=== PATIENT | female | born 1990 | race Caucasian/White ===

== ENCOUNTER 2020-12-02 06:44 | Emergency (ER) | payer MEDICAID ==
[~2020-12-02] VITALS: Ht 172.7 cm; Wt 63.5 kg
[2020-12-02 07:31] LABS: Urine Amorphous Crystal MANY /hpf (None Seen); Urine Bacteria NONE SEEN /hpf (None Seen); Urine Blood Negative /uL (Negative); Urine Specific Gravity 1.018 (1.001-1.035); Urine WBC 17 /hpf (0 - 5); Urine WBC Clumps PRESENT /hpf (None Seen)
[2020-12-02 07:42] LABS: Basophils # (auto) 0 10 ^3/uL (0-0.2); Basophils % (auto) 0.2 % (0.0-2.0); Eosinophils # (auto) 0 10 ^3/uL (0-0.8); Hemoglobin 14.8 g/dL (12.2-16.2); Lymphocytes # (auto) 0.9 10 ^3/uL (0.4-5.4); Lymphocytes % (auto) 7.6 % (10.0-50.0); Mean Corpuscular Hemoglobin 31.3 pg (28.0-32.0); Mean Corpuscular Hgb Conc. 33.6 g/dL (32.0-36.0); Monocytes # (auto) 0.3 10 ^3/uL (0-1.3); Monocytes % (auto) 2.7 % (0.0-12.0); Neutrophils # (auto) 10.3 10 ^3/uL (1.6-8.6); Neutrophils % (auto) 89.5 % (37.0-80.0); Platelet Count (auto) 197 10^3/uL (140-450); Red Blood Cells 4.73 10^6/uL (4.0-5.20); Red Cell Distribution Width 12.8 % (11.8-14.3); White Blood Cell 11.5 10^3/uL (4.4-10.8)
[2020-12-02] MEDS ORDERED: MORPHINE SULFATE 4 MG/ML SYR/VIAL IV ONE (07:45)
[2020-12-02] MEDS ORDERED: ONDANSETRON HCL 4 MG/2 ML VIAL IV ONE (07:45)
[2020-12-02 07:58] LABS: Albumin 4.1 g/dL (3.4-5.0); Calcium 8.8 mg/dL (8.5-10.1); Potassium 4.2 mmol/L (3.5-5.1)
[2020-12-02 07:59] LABS: BUN/Creatinine Ratio 23.3
[2020-12-02 08:00] VITALS: BP 116/83
[2020-12-02] MEDS ORDERED: SODIUM CHLORIDE 0.9% 1,000 ML IV ONE (08:00)
[2020-12-02] MEDS ORDERED: PROCHLORPERAZINE EDISYLATE 5 MG/ML 2ML VIAL IV ONE (08:00)
[2020-12-02 08:02] LABS: Bilirubin, Total 0.5 mg/dL (0.2-1.0); Total Protein 7.5 g/dL (6.4-8.2)
[2020-12-02 08:11] LABS: Alcohol, Urine < 3.0 mg/dL (0-10); Amphetamine Screen, Urine NEGATIVE (NEGATIVE); Barbiturate Scree,Urine NEGATIVE (NEGATIVE); Cannabinoid Screen, Urine POSITIVE (NEGATIVE); Cocaine Screen, Urine NEGATIVE (NEGATIVE); Opiate Scree,Urine NEGATIVE (NEGATIVE); Phencyclidine Screen, Urine NEGATIVE (NEGATIVE)
[2020-12-02 08:19] LABS: Benzodiazephine Screen, Urine NEGATIVE (NEGATIVE)
== END 2020-12-02 09:36 | disposition home or self-care (01) ==
LOC: ER 06:44
DX: N39.0 Urinary tract infection, site not specified (principal); F12.19 Cannabis abuse with unspecified cannabis-induced disorder
CPT/HCPCS: 36415; 80053; 80307; 81001; 83690; 85025; 96361; 96374; 96375; 99284; J0780; J2270; J2405

== ENCOUNTER 2021-10-18 12:17 | Emergency (ER) | payer MEDICAID ==
[~2021-10-18] VITALS: Ht 172.7 cm; Wt 69.9 kg
[2021-10-18 15:59] VITALS: BP 130/86
== END 2021-10-18 16:04 | disposition home or self-care (01) ==
LOC: ER 12:17
DX: S63.502A Unspecified sprain of left wrist, initial encounter (principal); W22.8XXA Striking against or struck by other objects, initial encounter; Y93.89 Activity, other specified; Y92.89 Other specified places as the place of occurrence of the external cause; Y99.8 Other external cause status
CPT/HCPCS: 29125; 73110

== ENCOUNTER 2023-09-07 09:14 | Emergency (ER) | payer MEDICAID ==
[~2023-09-07] VITALS: Ht 172.7 cm; Wt 72.0 kg
[2023-09-07 09:20] VITALS: BP 133/85; PULSE 114; RESP 16; TEMP 98.3; O2SAT 98
[2023-09-07] MEDS: KETOROLAC TROMETH 60MG/2ML VIAL IM ONE (10:43)
[2023-09-07] MEDS: cefTRIAXone SOD 1,000 MG VL IM ONE (10:43)
[2023-09-07] MEDS ORDERED: IBUP-1455 PO (10:50)
[2023-09-07] MEDS ORDERED: BACDST PO (10:50)
== END 2023-09-07 10:51 | disposition home or self-care (01) ==
LOC: ER 09:14
DX: L05.91 Pilonidal cyst without abscess (principal)
CPT/HCPCS: 96372; 99284; J0696; J1885

== ENCOUNTER 2024-02-08 09:57 | Emergency (ER) | payer MEDICAID ==
[~2024-02-08] VITALS: Ht 172.7 cm; Wt 69.0 kg
[~2024-02-08 09:57] MED LIST: BACDST PO; IBUP-1455 PO
[2024-02-08 10:20] VITALS: BP 128/94; PULSE 89; RESP 17; TEMP 98.6; O2SAT 98
== END 2024-02-08 10:42 | disposition left against medical advice (07) ==
LOC: ER 09:57
DX: M79.642 Pain in left hand (principal); W22.8XXA Striking against or struck by other objects, initial encounter; Y93.89 Activity, other specified; Y92.89 Other specified places as the place of occurrence of the external cause; Y99.8 Other external cause status

== ENCOUNTER 2025-02-17 09:21 | Emergency (ER) | payer MEDICAID, OTHER, SELFPAY ==
[~2025-02-17] VITALS: Ht 172.7 cm; Wt 72.2 kg
[2025-02-17 10:35] LABS: Hematocrit 42.9 % (36.0-46.0); Hemoglobin 14.3 g/dL (12.2-16.2); Mean Corpuscular Hemoglobin 31.5 pg (28.0-32.0); Mean Corpuscular Volume 94.1 fL (80.0-100.0); Nucleated Red Blood Cells % 0.0 %
[2025-02-17 10:43] LABS: Potassium 4.1 mmol/L (3.5-5.1); Sodium 139 mmol/L (136-145)
[2025-02-17 10:44] LABS: Anion Gap 7 (5-15); Calcium 9.6 mg/dL (8.7-10.4); Carbon Dioxide 25 mmol/L (20-31)
[2025-02-17 10:49] LABS: BUN/Creatinine Ratio 14.9 (10.0-20.0); Blood Urea Nitrogen 11 mg/dL (9-23); Chloride 107 mmol/L (98-107); Glucose 102 mg/dL (74-106)
[2025-02-17] MEDS: cefTRIAXone SOD 1,000 MG VL IM ONE (11:55)
[2025-02-17 11:57] VITALS: BP 115/58; PULSE 74; RESP 18; TEMP 98.6; O2SAT 98
[2025-02-17] MEDS: HYDROcodone-ACET 7.5/325MG TAB PO ONE (12:11)
[2025-02-17] MEDS ORDERED: BACDST PO (12:41)
--- NOTE | 2025-02-17 12:41 | ED.PDOC ---
Musculoskeletal HPI Comments 34-year-old female with no MHx presents for a wound of the right heel following foot injections for plantar fasciitis Patient developed a wound to the right heel that appeared yesterday initially discharging a fussy yellow brownish fluid color Patient concerned because she says the wound is open and tender to touch in his aggravated with ambulation She admits she has a history of plantar fasciitis and received injections at the end of September of 2024 Chief Complaint: Lower Extremity Time Seen by MD: 09:27 Primary Care Provider: RAI Reviewed Notes: Nurses Notes, Medications, Allergies Allergies: Coded Allergies: NO KNOWN ALLERGIES (Unverified , 12/02/20) Home Meds Active Scripts Sulfamethoxazole W/Trimethopri (Bactrim Ds Tablet) 1 Tab Tb, 1 TAB PO BID for 7 Days, #14 TAB 0 Refills Prov:FIGUEROA COLON AVIONICS SYSTEM ENGINEER 02/17/25 Ibuprofen Micronized (Ibuprofen) 800 Mg Tab, 800 MG PO TID PRN, #40 TAB Prov:LAWRENCE PENN METAL BUGGY OPERATOR 09/07/23 Sulfamethoxazole W/Trimethopri (Bactrim Ds Tablet) 1 Tab Tb, 1 TAB PO BID for 10 Days, #20 TAB Prov:LAWRENCE PENN METAL BUGGY OPERATOR 09/07/23 Information Source: Patient Mode of Arrival: Ambulatory Past Medical History PAST MEDICAL HISTORY: Denies Surgical History: Denies all surgeries CLOTH MERCERIZER BACK TENDER History: No Pertinent CLOTH MERCERIZER BACK TENDER History Social History Smoker: Non-Smoker Alcohol: Denies ETOH Use Drugs: Denies Drug Use, Marijuana Lives In: Home All Other Systems: Reviewed and Negative (Per HPI) Physical Exam General Appearance: No Apparent Distress, Normal HEENT: Normal ENT Inspection, Pharynx Normal, TMs Normal Neck: Full Range of Motion, Non-Tender, Normal, Normal Inspection Respiratory: Chest Non-Tender, Lungs Clear, No Accessory Muscle Use, No Respiratory Distress, Normal Breath Sounds Cardiovascular: No Murmur, No Gallop, Regular Rate/Rhythm Breast Exam: Deferred Gastrointestinal: No Organomegaly, Non Tender, No Pulsatile Mass, Normal Bowel Sounds, Soft Genitalia: Deferred Pelvic: Deferred Rectal: Deferred Extremities: No calf tenderness, Normal capillary refill, Normal inspection, Normal range of motion, Non-tender, No pedal edema Musculoskeletal : Location: Right Extremity Location: Foot (Skin is warm dry appropriate for ethnicity. Puncture wound noted to the bottom of the right heel with mild surrounding erythema. Minimal discharge noted that is clear in color) Apperance: Normal Neurologic: Alert, No Motor Deficits, Normal Affect, Normal Mood, No Sensory Deficits Cerebellar Function: Normal Reflexes: Normal Skin: Dry, Normal Color, Warm Lymphatic: No Adenopathy Was a procedure done? Was a procedure done?: No Differential Diagnosis EXT Differential Diagnosis: Cellulitis X-Ray, Labs, Meds, VS Vital Signs Date Time Temp Pulse Resp B/P (MAP) Pulse Ox O2 Delivery O2 Flow Rate FiO2 02/17/25 11:57 98.6 74 18 115/58 (77) 98 98.6 02/17/25 11:03 97.5 94 16 128/85 (99) 100 97.5 02/17/25 11:03 94 16 100 Room Air 02/17/25 09:22 97.5 94 16 128/85 100 97.5 Lab Test 02/17/25 10:05 Range/Units White Blood Count 7.7 4.4-10.8 10^3/uL Red Blood Count 4.55 4.0-5.20 10^6/uL Hemoglobin 14.3 12.2-16.2 g/dL Hematocrit 42.9 36.0-46.0 % Mean Corpuscular Volume 94.1 80.0-100.0 fL Mean Corpuscular Hemoglobin 31.5 28.0-32.0 pg Mean Corpuscular Hemoglobin Concent 33.5 32.0-36.0 g/dL Red Cell Distribution Width 12.8 11.8-14.3 % Platelet Count 218 140-450 10^3/uL Mean Platelet Volume 10.1 6.9-10.8 fL Neutrophils (%) (Auto) 75.7 37.0-80.0 % Lymphocytes (%) (Auto) 17.8 10.0-50.0 % Monocytes (%) (Auto) 4.6 0.0-12.0 % Eosinophils (%) (Auto) 1.3 0.0-7.0 % Basophils (%) (Auto) 0.6 0.0-2.0 % Neutrophils # (Auto) 5.8 1.6-8.6 10 ^3/uL Lymphocytes # (Auto) 1.4 0.4-5.4 10 ^3/uL Monocytes # (Auto) 0.4 0-1.3 10 ^3/uL Eosinophils # (Auto) 0.1 0-0.8 10 ^3/uL Basophils # (Auto) 0 0-0.2 10 ^3/uL Nucleated Red Blood Cells 0.0 % Erythrocyte Sedimentation Rate 3 0-20 mm/hr Sodium Level 139 136-145 mmol/L Potassium Level 4.1 3.5-5.1 mmol/L Chloride Level 107 98-107 mmol/L Carbon Dioxide Level 25 20-31 mmol/L Anion Gap 7 5-15 Blood Urea Nitrogen 11 9-23 mg/dL Creatinine 0.74 0.550-1.02 mg/dL Glomerular Filtration Rate Calc 107 >90 mL/min BUN/Creatinine Ratio 14.9 10.0-20.0 Serum Glucose 102 74-106 mg/dL Calcium Level 9.6 8.7-10.4 mg/dL C-Reactive Protein High Sensitivity 0.52 <1.0 mg/dL Current Medications Medications (Trade) Dose Ordered Sig/Greyson Route Start Time Stop Time Status Last Admin Ceftriaxone Sodium (Rocephin) 1,000 mg ONCE ONCE IM 02/17/25 11:45 02/17/25 11:47 DC 02/17/25 11:55 Acetaminophen/ Hydrocodone Bitart ([place] 7.5/325MG Tab) 1 tab ONCE ONCE PO 02/17/25 12:15 02/17/25 12:16 DC 02/17/25 12:11 X-Ray, Labs, Meds, VS Comment History and findings consistent with cellulitis. The area of infection does not appear to have any loculations/induration based on physical exam. The patient did not require an incision and drainage. Patient well appearing. VSS. Given History, Exam, and Workup I have low suspicion for Necrotizing Fasciitis, Abscess, Osteomyelitis, DVT or other emergent problem as a cause for this presentation. Low risk for treatment failure based on history. The patient will be treated with antibiotics. The patient was advised to return 24-48 hours for wound check. Sooner if symptoms worsen. Additional MDM Review of External, Non-ED records: External records reviewed. Discussion with independent historian (EMS, family) history obtained from the patient/parents (if applicable) at bedside Chronic conditions affecting care: None Social determinants of health affecting care: None Consideration of admission (observation or admission): I considered escalation of care to admission for this patient, however given the reassuring workup, the patient is safe for outpatient management. Discussion with the Radiology: No Tests considered but not performed: Prescription medication considered but not given: Time of 1ST Reevaluation: 12:30 Reevaluation 1ST: Improved Patient Education/Counseling: Diagnosis, Treatment Family Education/Counseling: Diagnosis, Treatment Departure 1 Departure Time of Disposition: 12:41 Impression: Primary Impression: Cellulitis Qualified Codes: L03.90 - Cellulitis, unspecified Disposition: HOME / SELF CARE / HOMELESS Condition: Stable e-Prescriptions Sulfamethoxazole W/Trimethopri (Bactrim Ds Tablet) 1 Tab Tb 1 TAB PO BID for 7 Days, #14 TAB 0 Refills Prov: FIGUEROA COLON NP 02/17/25 Critical Care Note Critical Care Time?: No Stability Stability form required: No Heart Score Heart Score: Heart Score Response (Comments) Value History N/A 0 EKG N/A 0 Age N/A 0 Risk Factors N/A 0 Troponin N/A 0 Total 0 FIGUEROA COLON NP Feb 17, 2025 12:41
== END 2025-02-17 12:50 | disposition home or self-care (01) ==
LOC: ER 09:21
DX: L03.90 Cellulitis, unspecified (principal); Z79.899 Other long term (current) drug therapy
CPT/HCPCS: 36415; 80048; 85025; 85652; 86141; 87040; 96372; 99283; J0696

== ENCOUNTER 2025-03-28 14:02 | Inpatient (IN) | payer SELFPAY ==
[~2025-03-28] VITALS: Ht 172.7 cm; Wt 74.6 kg
[2025-03-28 15:19] LABS: Hematocrit 42.9 % (36.0-46.0); Hemoglobin 14.4 g/dL (12.2-16.2); Mean Corpuscular Hemoglobin 30.8 pg (28.0-32.0); Mean Corpuscular Volume 91.5 fL (80.0-100.0); Nucleated Red Blood Cells % 0.1 %
--- NOTE | 2025-03-28 15:23 | ED.PDOC ---
General HPI Comments 34 y/o F, with no prior medical history presents to the ED for CC of flank pain. Patient states, she has been experiencing left-sided flank pain that radiates to her left pelvic region x2days. Patient reports, pain to be "sharp" in nature worsening with ambulation. Patient denies abdominal pain, urinary frequency, vaginal discharge, fever, or vomiting. No other symptoms or modifying factors are present at this time. Chief Complaint: Flank Pain Time Seen by MD: 15:00 Primary Care Provider: RAI Gutierrez notes: Nurses Notes, Medications, Allergies Allergies: Coded Allergies: NO KNOWN ALLERGIES (Unverified , 12/02/20) Home Meds Active Scripts Sulfamethoxazole W/Trimethopri (Bactrim Ds Tablet) 1 Tab Tb, 1 TAB PO BID for 7 Days, #14 TAB 0 Refills Prov:FIGUEROA COLON STEEL ENGRAVER 02/17/25 Ibuprofen Micronized (Ibuprofen) 800 Mg Tab, 800 MG PO TID PRN, #40 TAB Prov:LAWRENCE PENN SINKER WINDER 09/07/23 Sulfamethoxazole W/Trimethopri (Bactrim Ds Tablet) 1 Tab Tb, 1 TAB PO BID for 10 Days, #20 TAB Prov:LAWRENCE PENN SINKER WINDER 09/07/23 Information Source: Patient Mode of Arrival: Ambulatory Severity: Moderate Timing: Days Duration: Since onset Prehospital treatment: None Onset: Spontaneous Symptoms: None History of: None Location: (L)Flank Modifying factors: None associated signs and symptoms: Flank Pain Past Medical History PAST MEDICAL HISTORY: Denies Surgical History: Denies all surgeries AUDIO VIDEO TECHNICIAN History: No Pertinent AUDIO VIDEO TECHNICIAN History Social History Smoker: Non-Smoker Alcohol: Denies ETOH Use Drugs: Denies Drug Use, Marijuana Lives In: Home Physical Exam General Appearance: No Apparent Distress, Normal HEENT: Normal ENT Inspection, Pharynx Normal Neck: Full Range of Motion, Non-Tender, Normal, Normal Inspection Respiratory: Chest Non-Tender, Lungs Clear, No Accessory Muscle Use, No Respiratory Distress, Normal Breath Sounds Cardiovascular: No Edema, No Murmur, No Gallop, Normal Peripheral Pulses, Regu lar Rate/Rhythm Breast Exam: Deferred Gastrointestinal: No Organomegaly, Non Tender, No Pulsatile Mass, Normal Bowel Sounds, Soft Genitalia: Deferred Pelvic: Deferred Rectal: Deferred Extremities: No calf tenderness, Normal capillary refill, Normal inspection, Normal range of motion, Non-tender, No pedal edema Musculoskeletal : Location: Left Extremity Location: Back (flank) Apperance: Tenderness Neurologic: Alert, organ fixer II-XII nml as Tested, No Motor Deficits, Normal Affect, Normal Mood, No Sensory Deficits Cerebellar Function: Normal Reflexes: Normal Skin: Dry, Normal Color, Warm Lymphatic: No Adenopathy Was a procedure done? Was a procedure done?: No Differential Diagnosis Kidney stone (Female): Urinary obstruction, Urolithiasis Kidney stone (Male): N/A Penile/Scrotal: N/A Urinary Problem (Male): N/A Urinary Problem (Female): UTI, Vaginitis X-Ray, Labs, Meds, VS Vital Signs Date Time Temp Pulse Resp B/P (MAP) Pulse Ox O2 Delivery O2 Flow Rate FiO2 03/28/25 17:20 88 16 144/85 03/28/25 14:05 97.8 129 16 160/91 97 97.8 Lab Test 03/28/25 15:09 03/28/25 14:43 Range/Units White Blood Count 10.0 4.4-10.8 10^3/uL Red Blood Count 4.69 4.0-5.20 10^6/uL Hemoglobin 14.4 12.2-16.2 g/dL Hematocrit 42.9 36.0-46.0 % Mean Corpuscular Volume 91.5 80.0-100.0 fL Mean Corpuscular Hemoglobin 30.8 28.0-32.0 pg Mean Corpuscular Hemoglobin Concent 33.6 32.0-36.0 g/dL Red Cell Distribution Width 12.6 11.8-14.3 % Platelet Count 242 140-450 10^3/uL Mean Platelet Volume 9.6 6.9-10.8 fL Neutrophils (%) (Auto) 68.2 37.0-80.0 % Lymphocytes (%) (Auto) 22.2 10.0-50.0 % Monocytes (%) (Auto) 7.4 0.0-12.0 % Eosinophils (%) (Auto) 1.2 0.0-7.0 % Basophils (%) (Auto) 1.0 0.0-2.0 % Neutrophils # (Auto) 6.8 1.6-8.6 10 ^3/uL Lymphocytes # (Auto) 2.2 0.4-5.4 10 ^3/uL Monocytes # (Auto) 0.7 0-1.3 10 ^3/uL Eosinophils # (Auto) 0.1 0-0.8 10 ^3/uL Basophils # (Auto) 0.1 0-0.2 10 ^3/uL Nucleated Red Blood Cells 0.1 % Sodium Level 141 136-145 mmol/L Potassium Level 4.2 3.5-5.1 mmol/L Chloride Level 105 98-107 mmol/L Carbon Dioxide Level 28 20-31 mmol/L Anion Gap 8 5-15 Blood Urea Nitrogen 14 9-23 mg/dL Creatinine 0.91 0.550-1.02 mg/dL Glomerular Filtration Rate Calc 84 >90 mL/min BUN/Creatinine Ratio 15.4 10.0-20.0 Serum Glucose 123 H 74-106 mg/dL Calcium Level 9.7 8.7-10.4 mg/dL Urine Color Colorless Yellow Urine Clarity Turbid H Clear Urine pH 6.5 5.0-9.0 Urine Specific [place] 1.021 1.001-1.035 Urine Protein Trace H Negative Urine Ketones Negative Negative Urine Blood Negative Negative /uL Urine Nitrite Negative Negative Urine Bilirubin Negative Negative Urine Urobilinogen Normal Negative mg/dL Urine Leukocyte Esterase Negative Negative /uL Urine RBC 3 0 - 4 /hpf Urine WBC Clumps Present None Seen /hpf Urine Microscopic WBC 13 H 0-5 /HPF Urine Squamous Epithelial Cells Few <5 /hpf Urine Bacteria None seen None Seen /hpf Urine Yeast (Budding) Moderate None Seen /hpf Urine Glucose Normal Normal mg/dL Current Medications Medications (Trade) Dose Ordered Sig/Greyson Route Start Time Stop Time Status Last Admin Sodium Chloride 1,000 ml @ 1,000 mls/hr Q1H ONCE IV 03/28/25 16:30 03/28/25 17:29 DC 03/28/25 17:19 Morphine Sulfate 4 mg ONCE ONCE IV 03/28/25 16:30 03/28/25 16:48 DC 03/28/25 17:20 Ondansetron HCl (Zofran) 4 mg ONCE ONCE IV 03/28/25 16:30 03/28/25 16:48 DC 03/28/25 17:20 Ceftriaxone Sodium 50 ml @ 100 mls/hr ONCE ONCE IV 03/28/25 16:30 03/28/25 16:59 DC 03/28/25 17:21 Time of 1ST Reevaluation: 15:30 Reevaluation 1ST: Unchanged Patient Education/Counseling: Diagnosis, Treatment Family Education/Counseling: No Family Present SEPSIS Sepsis Screen Date sepsis recognized/suspect: Mar 28, 2025 Time Sepsis recognized/suspect: 1407 Recent Procedure: No On Antibiotic Therapy: No Respiratory Rate >20: No Heart Rate >90: No Temp<36 C (96.8 F) or >38.3 C: No SBP <90 or MAP <65 mmHG: No New Acute Mental Status Change: No Is the patient on CPAP, BIPAP,: No Physician Orders Ct Ab Pel Wo Con-No Oral Or Iv (03/28/25 16:20) Vital Signs Date Time Temp Pulse Resp B/P (MAP) Pulse Ox O2 Delivery O2 Flow Rate FiO2 03/28/25 17:20 88 16 144/85 03/28/25 14:05 97.8 129 16 160/91 97 97.8 Laboratory Tests Test 03/28/25 15:09 White Blood Count 10.0 10^3/uL (4.4-10.8) Medications Medications Dose Ordered Sig/Greyson Route Start Time Stop Time Status Last Admin Dose Admin Ceftriaxone Sodium 50 ml @ 100 mls/hr ONCE ONCE IV 03/28/25 16:30 03/28/25 16:59 DC 03/28/25 17:21 Morphine Sulfate 4 mg ONCE ONCE IV 03/28/25 16:30 03/28/25 16:48 DC 03/28/25 17:20 Ondansetron HCl 4 mg ONCE ONCE IV 03/28/25 16:30 03/28/25 16:48 DC 03/28/25 17:20 Sodium Chloride 1,000 ml @ 1,000 mls/hr Q1H ONCE IV 03/28/25 16:30 03/28/25 17:29 DC 03/28/25 17:19 Departure 1 Departure Time of Disposition: 18:29 (Patient presented with abdominal pain that was concerning for possible appendicits, gastritis, cholecystitis, colitis, gastr oenteritis, sbo, or orther possible surgical emergency. Data: 1. I ordered and reviewed the result of at least 3 labs including a CBC, BMP, and Urinalysis. 2. I independently interpreted the following tests: CT Abdomen and Pelvis is concerning for pyelonephritis _ .Risk:This patient has a high risk of morbidity due to further diagnostic testing or treatment and may suffer from an acute abdominal process disorder. Workup reveals acute pyelonephritis and intractable abdominal pain and patient should be admitted for further workup. and possible expert consultation. ) Impression: Primary Impression: Pyelonephritis Additional Impression: Intractable abdominal pain Disposition: ADMITTED INPATIENT Admit to: Med Surg Condition: Serious Critical Care Note Critical Care Time?: Yes Critical care comment: Intractable abdominal pain Authorized and Performed by: Marie Hendricks MD Total critical care time: Approximately 38 minutes Due to a high probability of clinically significant, life threatening deterioration, the patient required my highest level of preparedness to intervene emergently and I personally spent this critical care time directly and personally managing the patient. This critical care time included obtaining a history; examining the patient; pulse oximetry; ordering and review of studies; arranging urgent treatment with development of a management plan; evaluation of patient's response to treatment; frequent reassessment; and, discussions with other providers. This critical care time was performed to assess and manage the high probability of imminent, life-threatening deterioration that could result in multi-organ failure. It was exclusive of separately billable procedures and treating other patients and teaching time. Please see my other sections and the rest of the note for further information on patient assessment and treatment. Stability Stability form required: No Heart Score Heart Score: Heart Score Response (Comments) Value History N/A 0 EKG N/A 0 Age N/A 0 Risk Factors N/A 0 Troponin N/A 0 Total 0 I personally scribed for MARIE HENDRICKS MD ([email or web address]) on 03/28/25 at 15:23. Electronically submitted by Lary Guidry ([email or web address]). I personally scribed for MARIE HENDRICKS MD ([email or web address]) on 03/28/25 at 15:38. Electronically submitted by Lary Guidry ([email or web address]). MARIE HENDRICKS MD Mar 28, 2025 15:23
[2025-03-28 15:26] LABS: Chloride 105 mmol/L (98-107); Potassium 4.2 mmol/L (3.5-5.1); Sodium 141 mmol/L (136-145)
[2025-03-28 15:27] LABS: Anion Gap 8 (5-15); Calcium 9.7 mg/dL (8.7-10.4); Carbon Dioxide 28 mmol/L (20-31)
[2025-03-28 15:32] LABS: BUN/Creatinine Ratio 15.4 (10.0-20.0); Blood Urea Nitrogen 14 mg/dL (9-23)
[2025-03-28 15:33] LABS: Glucose 123 mg/dL (74-106)
[2025-03-28 15:47] LABS: Urine Budding Yeast MODERATE /hpf (None Seen); Urine Protein, UAD TRACE (Negative); Urine WBC Clumps PRESENT /hpf (None Seen)
--- NOTE | 2025-03-28 17:11 | DVH ---
COMPUTERIZED TOMOGRAPHY ABDOMEN AND PELVIS WITHOUT CONTRAST REASON FOR EXAM: left flank pain COMPARISON: None TECHNIQUE: Spiral scans were acquired from the diaphragm to the symphysis pubis without intravenous c ontrast administration. 2-D coronal and sagittal reformatted images were provided. Radiation optimiza tion: All CT scans at this facility use at least one of these dose optimization techniques: Automated exposure control mA and/or kV adjustment per patient size (includes targeted exams where dose is mat ched to clinical indication) or iterative reconstruction. RADIATION DOSE: CTDI: 10.11 mGy DLP: 509.31 mGy-cm FINDINGS: The visualized lung bases are grossly clear. There is no pleural effusion. The spleen is not enlarged. The liver is normal in size and contour. Evaluation of the abdominal orga ns is suboptimal in the absence of intravenous contrast. No calcified gallstone is identified. Unenha nced appearance of the pancreas is grossly unremarkable. The adrenal glands are normal. The kidneys a re similar in size. There is no hydronephrosis of either kidney. There is no renal, ureteral, or manuel dder calculus. The urinary bladder is unremarkable. The uterus and ovaries are within normal limits. There is a 1.7 cm left ovarian follicle. There is no free fluid identified in the abdomen or pelvis. There is no pathologic lymphadenopathy by size criteria. The colonic stool burden is small. The appe ndix is normal. There is no pathologic distention of the small bowel. No acute osseous abnormality i s identified. IMPRESSION: No renal, ureteral, or bladder calculus. No hydronephrosis of either kidney. There is a 1.7 cm left ovarian follicle. This is within physiologic limits but can be a cause of angelica n. Normal appendix
[2025-03-28] MEDS: SODIUM CHLORIDE 0.9% 1,000 ML IV ONE (17:19)
[2025-03-28] MEDS: ONDANSETRON HCL 4 MG/2 ML VIAL IV ONE (17:20)
[2025-03-28] MEDS: MORPHINE SULFATE 4 MG/ML SYR/VIAL IV ONE (17:20)
[2025-03-28] MEDS: MORPHINE SULFATE INJ 2 MG/ml SYRG IV ONE (21:50)
[2025-03-28 23:51] LABS: Cannabinoid Screen, Urine Pos (NEGATIVE)
[2025-03-28 23:52] LABS: Barbiturate Scree,Urine Neg (NEGATIVE); Opiate Scree,Urine Neg (NEGATIVE); Phencyclidine Screen, Urine Neg (NEGATIVE)
[2025-03-28 23:53] LABS: Amphetamine Screen, Urine Neg (NEGATIVE); Benzodiazephine Screen, Urine Neg (NEGATIVE); Cocaine Screen, Urine Neg (NEGATIVE)
[2025-03-29 00:04] LABS: Alanine Aminotransferase 19.0 U/L (7-40); Albumin 4.3 g/dL (3.2-4.8); Alkaline Phosphatase 51.0 U/L (46-116); Bilirubin, Total 0.8 mg/dL (0.2-1.0); Total Protein 7.0 g/dL (5.7-8.2)
[2025-03-29 00:17] LABS: Bilirubin, Direct 0.2 mg/dL (<0.3)
[2025-03-29] MEDS: IOHEXOL 300 MG/ML 100ML BOTTLE IJ ONE (00:33)
--- NOTE | 2025-03-29 01:21 | DVH ---
Exam: CT CT AB PEL WITH IV CON ONLY History: Pain. R/o abscess COMPARISON: CT CT AB PEL WO CON-NO ORAL OR IV on DOS: 03/28/25 Technique: Multidetector spiral CT of the abdomen and pelvis was performed from lung bases to pubic s ymphysis. Intravenous contrast was administered during this examination. Portal venous imaging was o btained. Axial, coronal and sagittal multiplanar reformats were performed by the technologist on a [employer] workstation. Radiation Dose : 1. Abdomen/Pelvis: CTDIvol 7.3mGy, DLP 432.87 mGy*cm. CONTRAST: Type of contrast: Omnipaque 300 Contrast injected: 100 ml Findings: Lung Bases: No acute or significant lung base finding. Normal heart size. No pleural or pericardial effusion. Liver: The liver is normal in size. No focal lesions. Normal hepatic vascular enhancement. Gallbladder and biliary Tree: Unremarkable Spleen: Unremarkable Pancreas: The pancreas is normal in appearance without focal lesions or abnormal enhancement. Adrenal Glands: Unremarkable Kidneys: No hydronephrosis. Bladder: Unremarkable Bowel: The stomach is grossly normal in appearance. Small bowel and colon are normal in caliber and d istribution. The appendix is not visualized; however, no secondary findings of acute appendicitis bonita ntified. Ascites: Absent Lymphadenopathy: No mesenteric, retroperitoneal or periportal lymphadenopathy. Abdominal wall and Mesentery: Unremarkable. Vasculature: The visualized abdominal aorta is normal in size and caliber. Abdominal and pelvic vess els demonstrate normal enhancement. Pelvic Organs: Unremarkable Musculoskeletal: No aggressive focal bony lesions, acute fractures or dislocation. IMPRESSION: No acute abdominal or pelvic finding. Radiation optimization: All CT scans at this facility use at least one of these dose optimization ann hniques: automated exposure control mA and/or kV adjustment per patient size (includes targeted exam s where dose is matched to clinical indication) or iterative reconstruction.
[2025-03-29] MEDS: MORPHINE SULFATE INJ 2 MG/ml SYRG IV PRN (01:45)
[2025-03-29] MEDS: ONDANSETRON HCL 4 MG/2 ML VIAL ONE (01:45)
[2025-03-29] MEDS: ACETAMINOPHEN 325 MG TAB PO PRN (01:46)
[2025-03-29 02:07] VITALS: BP 151/84; PULSE 68; RESP 16; TEMP 97.7; O2SAT 100
--- NOTE | 2025-03-29 04:03 | DVHHPRES ---
History of Present Illness Resident Creating Document: TENZIN CLEMENTE History of Present Illness Ms. Rehman is a 34-year-old female with prior medical history of sciatica, left plantar fasciitis, prediabetes, and gestational diabetes, who presents today with chief complaint of lower back pain. The patient states 2 days ago she had sudden onset of pain in left upper gluteal region described as sharp/stabbing, constant, radiating towards left pelvic region and down to her knee, intensity 10/10, associated with nausea, aggravated by movement of the left leg and associ ated with tingling along her leg. She denies fever, vomiting, redness of this region, edema, weakness, recent trauma, sick contacts, or symptoms of contralateral limb. due to progressive worsening of symptoms the patient sought medical care in the ED. On evaluation in the ED, the patient was tachycardic and hypertensive. Initial labs show CBC within normal range, chemical panel within normal range, UA with possible signs of contamination, and UDS positive for cannabis. Abdominal CT without contrast shows 1.7 cm left ovarian follicle. Abdominal CT with contrast shows no acute abdominal or pelvic finding. The patient was started on IV pain medication. She was admitted for further workup and monitoring. HARMONICA MAKER: Other (Sciatica) Musculoskeletal: Other (Plantar fasciitis) Endocrine: Other (Diabetes) Past Surgical History: None Smoke: No ALCOHOL: none (Refers daily marijuana use) Drugs: Marijuana Lives: with Family Domestic Violence: Neg Review of Systems Review of Systems Constitutional: Denies weight loss, fever and chills. HEENT: Denies changes in vision and hearing. Respiratory: Denies shortness of breath and cough Cardiovascular: Denies chest discomfort or palpitations GI: Denies abdominal distention, abdominal pain, diarrhea : Denies dysuria and urinary frequency. Musculoskeletal: Refers intense left leg pain Skin: Denies rash and pruritus. Neurological: denies dizziness headache vision or hearing problems Allergies: Coded Allergies: NO KNOWN ALLERGIES (Unverified , 12/02/20) Medications Current Medications Medications Dose Ordered Sig/Greyson Route Start Time Stop Time Status Last Admin Dose Admin Acetaminophen 325 mg Q4HP PRN PO 03/29/25 00:30 03/29/25 01:46 325 MG Morphine Sulfate 1 mg Q4HP PRN IV 03/29/25 00:30 03/29/25 01:45 1 MG Ceftriaxone Sodium 50 ml @ 100 mls/hr DAILY@09 IV 03/29/25 09:00 Exam Vital Signs Vital Signs Date Time Temp Pulse Resp B/P (MAP) Pulse Ox O2 Delivery O2 Flow Rate FiO2 03/29/25 02:07 97.7 68 16 151/84 (106) 100 97.7 03/29/25 02:07 Room Air* 0 21 Exam General: The patient alert and oriented in person place and time. Patient following commands HEENT: Normocephalic, atraumatic, normal reactive pupils, EOM intact, pink conjunctiva, pink moist mucous membrane Respiratory/pulmonary: Bilateral chest expansion, no pain on palpation of chest wall, clear lungs bilaterally, vesicular murmurs present in almost all lung baer, no associated crackles or wheezes. Cardiovascular: Normal RRR, normal S1 and S2, no murmurs Abdomen: Abdomen nondistended, normal bowel sounds, soft, there is no pain to palpation in any of the abdominal quadrants, no palpable masses. Extremities: No deformities, pain on palpation of left gluteal area, pain on flexion of left hip, limitations to active movements of left lower limb, there is no peripheral edema present at the lower extremities, normal pulses. Patient has no pain with passive left leg movement Skin: No rashes or pruritus, there is no sacral edema present at this time. Neurological: Intact cranial nerves with no focal neurologic deficits Labs/Xrays Labs Test 03/28/25 23:34 03/28/25 15:09 03/28/25 15:02 03/28/25 14:43 Range/Units Lactic Acid Level 0.7 0.4-2.0 mmol/L Total Bilirubin 0.8 0.2-1.0 mg/dL Direct Bilirubin 0.2 <0.3 mg/dL Aspartate Amino Transferase (AST) 17 13-40 U/L Alanine Aminotransferase (ALT) 19 7-40 U/L Alkaline Phosphatase 51 46-116 U/L C-Reactive Protein High Sensitivity 0.05 <1.0 mg/dL Total Protein 7.0 5.7-8.2 g/dL Albumin 4.3 3.2-4.8 g/dL White Blood Count 10.0 4.4-10.8 10^3/uL Red Blood Count 4.69 4.0-5.20 10^6/uL Hemoglobin 14.4 12.2-16.2 g/dL Hematocrit 42.9 36.0-46.0 % Mean Corpuscular Volume 91.5 80.0-100.0 fL Mean Corpuscular Hemoglobin 30.8 28.0-32.0 pg Mean Corpuscular Hemoglobin Concent 33.6 32.0-36.0 g/dL Red Cell Distribution Width 12.6 11.8-14.3 % Platelet Count 242 140-450 10^3/uL Mean Platelet Volume 9.6 6.9-10.8 fL Neutrophils (%) (Auto) 68.2 37.0-80.0 % Lymphocytes (%) (Auto) 22.2 10.0-50.0 % Monocytes (%) (Auto) 7.4 0.0-12.0 % Eosinophils (%) (Auto) 1.2 0.0-7.0 % Basophils (%) (Auto) 1.0 0.0-2.0 % Neutrophils # (Auto) 6.8 1.6-8.6 10 ^3/uL Lymphocytes # (Auto) 2.2 0.4-5.4 10 ^3/uL Monocytes # (Auto) 0.7 0-1.3 10 ^3/uL Eosinophils # (Auto) 0.1 0-0.8 10 ^3/uL Basophils # (Auto) 0.1 0-0.2 10 ^3/uL Nucleated Red Blood Cells 0.1 % Sodium Level 141 136-145 mmol/L Potassium Level 4.2 3.5-5.1 mmol/L Chloride Level 105 98-107 mmol/L Carbon Dioxide Level 28 20-31 mmol/L Anion Gap 8 5-15 Blood Urea Nitrogen 14 9-23 mg/dL Creatinine 0.91 0.550-1.02 mg/dL Glomerular Filtration Rate Calc 84 >90 mL/min BUN/Creatinine Ratio 15.4 10.0-20.0 Serum Glucose 123 H 74-106 mg/dL Calcium Level 9.7 8.7-10.4 mg/dL Thyroid Stimulating Hormone (TSH) 1.99 0.55-4.78 uIU/mL Treponema pallidum Antibody Non-reactive Negative HIV (1&2) Antibody Negative Negative Urine Color Colorless Yellow Urine Clarity Turbid H Clear Urine pH 6.5 5.0-9.0 Urine Specific [place] 1.021 1.001-1.035 Urine Protein Trace H Negative Urine Ketones Negative Negative Urine Blood Negative Negative /uL Urine Nitrite Negative Negative Urine Bilirubin Negative Negative Urine Urobilinogen Normal Negative mg/dL Urine Leukocyte Esterase Negative Negative /uL Urine RBC 3 0 - 4 /hpf Urine WBC Clumps Present None Seen /hpf Urine Microscopic WBC 13 H 0-5 /HPF Urine Squamous Epithelial Cells Few <5 /hpf Urine Bacteria None seen None Seen /hpf Urine Yeast (Budding) Moderate None Seen /hpf Urine Glucose Normal Normal mg/dL Urine Test Negative Negative Urine Opiates Screen Neg NEGATIVE Urine Fentanyl Screen Neg NEGATIVE Urine Barbiturates Screen Neg NEGATIVE Urine Phencyclidine Screen Neg NEGATIVE Urine Amphetamines Screen Neg NEGATIVE Urine Benzodiazepines Screen Neg NEGATIVE Urine Cocaine Screen Neg NEGATIVE Urine Cannabinoids Screen Pos NEGATIVE SEPSIS Sepsis Screen Date sepsis recognized/suspect: Mar 28, 2025 Time Sepsis recognized/suspect: 1407 Recent Procedure: No On Antibiotic Therapy: No Respiratory Rate >20: No Heart Rate >90: No Temp<36 C (96.8 F) or >38.3 C: No SBP <90 or MAP <65 mmHG: No New Acute Mental Status Change: No Is the patient on CPAP, BIPAP,: No Physician Orders Acute Hepatitis Panel (03/28/25 23:22) Chlamydia/Gc Amplification (03/28/25 23:22) Ct Ab Pel With Iv Con Only (03/28/25 23:56) Allergies (03/29/25 00:21) Acetaminophen Tablet (Tylenol Tablet) (03/29/25 00:30) Complete Blood Count (03/30/25 04:00) Condition: Stable (03/29/25 00:21) Admit (03/29/25 00:21) Code Status (03/29/25 00:21) Vital Signs .PER UNIT PROTOCOL (03/29/25 00:21) Review Orders With Adm.Md (03/29/25 00:21) Notify Md Of Changes From Base (03/29/25 00:21) Advance Directive (03/29/25 00:21) Patient Condition (03/29/25 00:21) Allergies (03/29/25 00:21) Stat Ekg For Chest Pain (03/29/25 00:21) Notify Md Of Changes From Base (03/29/25 00:21) Emergency Dysrhythmia Protocol (03/29/25 00:21) Rhythm Strips Once Every Shift (03/29/25 00:21) Morphine Sulfate Injection (03/29/25 00:30) Regular Diet (03/29/25 Breakfast) Blood Culture (03/29/25 00:21) Urine Bacterial Culture (03/29/25 00:21) Ceftriaxone 1gm/50ml (Rocephin) (03/29/25 09:00) Lt Lower Dvt (03/29/25 02:38) Lt Low Ext Art Duplex (03/29/25 02:38) Erythrocyte Sedimentation Rate (03/29/25 02:41) Vital Signs Date Time Temp Pulse Resp B/P (MAP) Pulse Ox O2 Delivery O2 Flow Rate FiO2 03/29/25 02:07 97.7 68 16 151/84 (106) 100 97.7 03/29/25 02:07 97.7 68 16 151/84 (106) 100 97.7 03/29/25 02:07 68 16 100 Room Air* 0 21 03/29/25 01:45 74 14 130/76 03/28/25 21:51 98.8 84 18 108/74 (85) 96 98.8 03/28/25 21:50 84 18 108/71 03/28/25 21:37 88 18 108/71 03/28/25 19:56 98.0 89 16 132/81 (98) 98 98.0 Laboratory Tests Test 03/28/25 23:34 Lactic Acid Level 0.7 mmol/L (0.4-2.0) Medications Medications Dose Ordered Sig/Greyson Route Start Time Stop Time Status Last Admin Dose Admin Acetaminophen 325 mg Q4HP PRN PO 03/29/25 00:30 03/29/25 01:46 325 MG Ceftriaxone Sodium 50 ml @ 100 mls/hr ONCE ONCE IV 03/28/25 16:30 03/28/25 16:59 DC 03/28/25 17:21 100 MLS/HR Morphine Sulfate 1 mg Q4HP PRN IV 03/29/25 00:30 03/29/25 01:45 1 MG Morphine Sulfate 2 mg ONCE ONCE IV 03/28/25 21:45 03/28/25 21:46 DC 03/28/25 21:50 2 MG Morphine Sulfate 4 mg ONCE ONCE IV 03/28/25 16:30 03/28/25 16:48 DC 03/28/25 17:20 4 MG Ondansetron HCl 4 mg ONCE ONCE IV 03/28/25 16:30 03/28/25 16:48 DC 03/28/25 17:20 4 MG Ondansetron HCl 4 mg STK-MED ONCE .ROUTE 03/29/25 01:35 03/29/25 01:31 DC 03/29/25 01:45 4 MG Sodium Chloride 1,000 ml @ 1,000 mls/hr Q1H ONCE IV 03/28/25 16:30 03/28/25 17:29 DC 03/28/25 17:19 1,000 MLS/HR Assessment/Plan Assessment/Plan Assessment and Plan: Intractable left lower extremity/ pelvic pain, rule out PID - Abdominal CT without contrast shows 1.7 cm left ovarian follicle. - Abdominal CT with contrast shows no acute abdominal or pelvic finding, on obse rvation there is significant fat stranding in pelvic area - Morphine 4 mg IV once - Morphine 2 mg IV once - Morphine 1 mg IV q.4 hours PRN - Admitted from 325 mg p.o. q.4 hours PRN - CRP and ESR ordered - Acute hepatitis, chlamydia/ GC amplification ordered - Treponemal antibody negative - HIV 1 and 2 antibody negative - blood culture ordered - L Venous Duplex US ordered Questionable acute cystitis without hematuria - urine culture ordered - ceftriaxone 1 g IV daily History of sciatica History of plantar fasciitis Prediabetes -HbA1c pending -Consistent carbohydrate diet Marijuana use - I have counseled the patient on the importance of complete drug cessation for over 15 minutes Diet: Consistent carbohydrate GI prophylaxis: Not indicated DVT prophylaxis: Not indicated, patient is ambulatory Case discussed with Dr. Kay Goals of care discussed with the patient for over 31 minutes. FULL CODE. Plan discussed with: Patient, Other (Nurses) My Orders Orders - TENZIN CLEMENTE RESIDENT Procedure Category Date Status Time Acute Hepatitis Panel LAB 03/28/25 In Process 23:22 Chlamydia/Gc LAB 03/28/25 In Process Amplification 23:22 Ct Ab Pel With Iv Con CT 03/28/25 Resulted Only 23:56 Allergies FILEMON 03/29/25 In Process 00:21 Acetaminophen Tablet PHA 03/29/25 In Process (Tylenol Tablet) 00:30 Complete Blood Count LAB 03/30/25 Verified 04:00 Condition: Stable FILEMON 03/29/25 In Process 00:21 Admit ADMIT 03/29/25 Transmitted 00:21 Code Status CODE 03/29/25 Transmitted 00:21 Vital Signs [facility] 03/29/25 In Process 00:21 Review Orders With [facility] 03/29/25 In Process Adm.Md 00:21 Notify Md Of Changes [facility] 03/29/25 In Process From Base 00:21 Advance Directive [facility] 03/29/25 In Process 00:21 Patient Condition ORDERS 03/29/25 Transmitted 00:[address] [facility] 03/29/25 In Process 00:21 Stat Ekg For Chest [facility] 03/29/25 In Process Pain 00:21 Notify Md Of Changes [facility] 03/29/25 In Process From Base 00:21 Emergency Dysrhythmia [facility] 03/29/25 In Process Protocol 00:21 Rhythm Strips Once [facility] 03/29/25 In Process Every Shift 00:21 Morphine Sulfate PHA 03/29/25 In Process Injection 00:30 Regular Diet DIET 03/29/25 Transmitted Breakfast Blood Culture MONTEZ 03/29/25 In Process 00:21 Urine Bacterial MONTEZ 03/29/25 In Process Culture 00:21 Ceftriaxone 1gm/50ml PHA 03/29/25 In Process (Rocephin) 09:00 Date of Service: Mar 29, 2025 Billing Provider: JACINTA KAY MD Common Visit Codes: [id number] INP/OBS CARE (HIGH) Secondary Visit Codes: [id number] CARE PLAN 30 MINUTES TENZIN CLEMENTE RESIDENT Mar 29, 2025 04:03 FOZIA FRY RESIDENT Mar 29, 2025 04:09
[2025-03-29 05:00] VITALS: BP 111/79; PULSE 95; RESP 18; TEMP 98; O2SAT 99
[2025-03-29 08:00] VITALS: O2SAT 98
[2025-03-29 08:37] VITALS: BP 114/83; PULSE 75; RESP 21; TEMP 97.9; O2SAT 99
--- NOTE | 2025-03-29 08:39 | DVH ---
CLINICAL HISTORY: Lower limb weakness TECHNIQUE: Color and duplex doppler imagine of the left lower extremity veins was performed. Vessel c ompression if possible was also performed. COMPARISON: US LT LOW EXT ART DUPLEX on DOS: 03/29/25, LWRI on DOS: 10/18/21 FINDINGS: Left common femoral vein: Normal compressibility and flow. Left superficial femoral vein: Normal compressibility and flow. Left popliteal vein: Normal compressibility and flow. Proximal calf veins are normally compressible. IMPRESSION: NO SONOGRAPHIC EVIDENCE FOR DEEP VENOUS THROMBOSIS IN THE LEFT LOWER EXTREMITY VEINS.
--- NOTE | 2025-03-29 08:54 | DVH ---
Left Lower Extremity Arterial Duplex Clinical History: lower limb weakness Comparison: US LT LOWER DVT on DOS: 03/29/25 Technique: Duplex Doppler evaluation including color Doppler and spectral/pulsed waveform analysis of the lower extremity arteries was performed. Findings: LEFT: Peak systolic velocities are as follows: [employer] 182 cm/s Deep femoral 95 cm/s SFA proximal 111 cm/s SFA mid-portion 124 cm/s SFA distal 108 cm/s Popliteal 71 cm/s Posterior tibial 68 cm/s Anterior tibial 82 cm/s Peroneal nv cm/s Dorsalis pedis 62 cm/s The waveforms are triphasic. IMPRESSION: 20-49% stenosis of the left common femoral artery based on peak systolic velocity criteria. Otherwis e, essentially unremarkable exam. REFERENCE VALUES, [facility] ([facility]) vascular Imaging Lab Criteria: Peak systolic velocity rang es (in cm/sec) are as follows: <150 cm/s - <20 % stenosis 150-200 cm/s - 20-49% stenosis 200-300 cm/s - 50-75% stenosis >300 cm/s -> 75% stenosis
[2025-03-29 10:52] LABS: Hepatitis B Surface Antigen Negative (Negative); Hepatitis C Antibody Negative (Negative)
[2025-03-29 12:53] VITALS: BP 120/86; PULSE 83; RESP 20; TEMP 98; O2SAT 100
[2025-03-29] MEDS ORDERED: BACL5TAB2 PO (13:28)
[2025-03-29] MEDS ORDERED: HYDR-4902 PO ×2 (13:28→16:39)
[2025-03-29] MEDS ORDERED: IBU600T PO (13:28)
[2025-03-29] MEDS ORDERED: ACET-1079 PO (13:28)
[2025-03-29] MEDS ORDERED: CEPH250C PO (13:36)
--- NOTE | 2025-03-29 13:37 | DVHDS2 ---
Discharge Summary Date of Admission Mar 29, 2025 at 00:21 Date of Discharge: Mar 29, 2025 Labs/Diagnostic Data: Laboratory Results Test 03/28/25 23:34 03/28/25 15:09 03/28/25 15:02 03/28/25 14:43 Erythrocyte Sedimentation Rate 2 mm/hr (0-20) Hemoglobin A1c 5.3 % A1C (<5.7) Lactic Acid Level 0.7 mmol/L (0.4-2.0) Total Bilirubin 0.8 mg/dL (0.2-1.0) Direct Bilirubin 0.2 mg/dL (<0.3) Aspartate Amino Transferase (AST) 17 U/L (13-40) Alanine Aminotransferase (ALT) 19 U/L (7-40) Alkaline Phosphatase 51 U/L (46-116) C-Reactive Protein High Sensitivity 0.05 mg/dL (<1.0) Total Protein 7.0 g/dL (5.7-8.2) Albumin 4.3 g/dL (3.2-4.8) Hepatitis A IgM Antibody Negative Hepatitis B Surface Antigen Negative (Negative) Hepatitis B Core IgM Antibody Negative (Negative) Hepatitis C Antibody Negative (Negative) White Blood Count 10.0 10^3/uL (4.4-10.8) Red Blood Count 4.69 10^6/uL (4.0-5.20) Hemoglobin 14.4 g/dL (12.2-16.2) Hematocrit 42.9 % (36.0-46.0) Mean Corpuscular Volume 91.5 fL (80.0-100.0) Mean Corpuscular Hemoglobin 30.8 pg (28.0-32.0) Mean Corpuscular Hemoglobin Concent 33.6 g/dL (32.0-36.0) Red Cell Distribution Width 12.6 % (11.8-14.3) Platelet Count 242 10^3/uL (140-450) Mean Platelet Volume 9.6 fL (6.9-10.8) Neutrophils (%) (Auto) 68.2 % (37.0-80.0) Lymphocytes (%) (Auto) 22.2 % (10.0-50.0) Monocytes (%) (Auto) 7.4 % (0.0-12.0) Eosinophils (%) (Auto) 1.2 % (0.0-7.0) Basophils (%) (Auto) 1.0 % (0.0-2.0) Neutrophils # (Auto) 6.8 10 ^3/uL (1.6-8.6) Lymphocytes # (Auto) 2.2 10 ^3/uL (0.4-5.4) Monocytes # (Auto) 0.7 10 ^3/uL (0-1.3) Eosinophils # (Auto) 0.1 10 ^3/uL (0-0.8) Basophils # (Auto) 0.1 10 ^3/uL (0-0.2) Nucleated Red Blood Cells 0.1 % Sodium Level 141 mmol/L (136-145) Potassium Level 4.2 mmol/L (3.5-5.1) Chloride Level 105 mmol/L (98-107) Carbon Dioxide Level 28 mmol/L (20-31) Anion Gap 8 (5-15) Blood Urea Nitrogen 14 mg/dL (9-23) Creatinine 0.91 mg/dL (0.550-1.02) Glomerular Filtration Rate Calc 84 mL/min (>90) BUN/Creatinine Ratio 15.4 (10.0-20.0) Serum Glucose 123 mg/dL (74-106) Calcium Level 9.7 mg/dL (8.7-10.4) Thyroid Stimulating Hormone (TSH) 1.99 uIU/mL (0.55-4.78) Treponema pallidum Antibody Non-reactive (Negative) HIV (1&2) Antibody Negative (Negative) Urine Color Colorless (Yellow) Urine Clarity Turbid (Clear) Urine pH 6.5 (5.0-9.0) Urine Specific [place] 1.021 (1.001-1.035) Urine Protein Trace (Negative) Urine Ketones Negative (Negative) Urine Blood Negative /uL (Negative) Urine Nitrite Negative (Negative) Urine Bilirubin Negative (Negative) Urine Urobilinogen Normal mg/dL (Negative) Urine Leukocyte Esterase Negative /uL (Negative) Urine RBC 3 /hpf (0 - 4) Urine WBC Clumps Present /hpf (None Seen) Urine Microscopic WBC 13 /HPF (0-5) Urine Squamous Epithelial Cells Few /hpf (<5) Urine Bacteria None seen /hpf (None Seen) Urine Yeast (Budding) Moderate /hpf (None Seen) Urine Glucose Normal mg/dL (Normal) Urine Test Negative (Negative) Urine Opiates Screen Neg (NEGATIVE) Urine Fentanyl Screen Neg (NEGATIVE) Urine Barbiturates Screen Neg (NEGATIVE) Urine Phencyclidine Screen Neg (NEGATIVE) Urine Amphetamines Screen Neg (NEGATIVE) Urine Benzodiazepines Screen Neg (NEGATIVE) Urine Cocaine Screen Neg (NEGATIVE) Urine Cannabinoids Screen Pos (NEGATIVE) Other Laboratory Tests 03/28/25 15:09 Brief Hx & Hospital Course: 34 F with no sig PMH admitted for 3 days of interactibel abd pain. Condition at Discharge: Good Final Diagnosis/Problems List muscle spasm ovarian folicle Discharge Disposition: Home Discharge Instruct/Medications Diet: Regular Activity: No Restrictions, As Tolerated Follow Up/Referral: dc clinic 1 week Medications: motrin baclofen tylenol norco PRN rest Scheduled Acetaminophen (Tylenol), 650 MG PO TID Baclofen (Baclofen), 5 MG PO TID Sulfamethoxazole W/Trimethopri (Bactrim Ds Tablet), 1 TAB PO BID Sulfamethoxazole W/Trimethopri (Bactrim Ds Tablet), 1 TAB PO BID Scheduled PRN Hydrocodone-Acetaminophen (Hydrocodone Bitartrate/AC 5-325 mg), 1 TAB PO TIDP PRN Ibuprofen Micronized (Ibuprofen), 800 MG PO TID PRN Ibuprofen Micronized (Motrin Tablet), 600 MG PO TID PRN Discharge Statement: "Patient was advised to return to the ER or call 911 if any headaches, dizziness, shortness of breath, chest pain, abdominal pain, bleeding, fevers, or worsening of medical condition. Patient was counseled about treatment plan, medications, possible side effects, patientverbalized understanding. All questions were answered to the best of my ability. This discharge took greater then 30 minutes in planning, reviewing documentation, counseling the patient, and discussing with other team members." ASSESSMENT ASSESSMENT Assessment muscle spasm ovarian folicle Date of Service: Mar 29, 2025 Billing Provider: MODESTA CAZARES MD Common Visit Codes: [id number] DISCH DAY >30min MODESTA CAZARES MD Mar 29, 2025 13:37
[2025-03-30 13:07] LABS: Chlamydia Trachomatis, NAA Negative (Negative); Neisseria gonorrhoeae, NAA Negative (Negative)
== END 2025-03-29 16:50 | disposition home or self-care (01) | DRG 556 ==
LOC: ER 14:02 → OVERFLOW 03-29 00:21 → EAST 03-29 02:01
PROVIDERS: ADMIT Student in an Organized Health Care Education/Training Program; ATTEND Student in an Organized Health Care Education/Training Program
DX: M62.838 Other muscle spasm (principal); N30.00 Acute cystitis without hematuria; N73.9 Female pelvic inflammatory disease, unspecified; E11.9 Type 2 diabetes mellitus without complications; F12.90 Cannabis use, unspecified, uncomplicated
CPT/HCPCS: 36415; 74176; 74177; 80048; 80074; 80076; 80307; 81001; 81025; 83036; 83605; 84443; 85025; 85652; 86141; 86703; 86780; 87040; 87086; 93926; 93971; 96361; 96365; 96375; 97163; 99291; G0378; J2405